=== PATIENT | female | born 1955 | race Caucasian/White ===

== ENCOUNTER → 2021-02-16 | Outpatient (CLI) | payer OTHER ==
[~2021-02-16] VITALS: Ht 157.5 cm; Wt 42.6 kg
[~2021-02-16] MED LIST: CITA10TA8 PO; LISI1TAB35 PO; NORMAL SALINE IV ONE; SINCALIDE IV ONE; SULF500T5 PO
--- NOTE | 2021-02-16 16:33 | RAD ---
HEPATOBILIARY SCAN WITH EJECTION FRACTION 02/16/2021 4:29 PM History: Reason: / Spl. Instructions: / History: Procedure: Serial static images are obtained of the liver and biliary system in the frontal projectio n following IV administration of 5.5 mCi of Technetium 99m Choletec. After filling of the gallbladd er, 0.87 mcg of sincalide were infused over 30 minutes and dynamic imaging continued over this period . The gallbladder ejection fraction was calculated. Findings: There is prompt hepatic clearance of tracer from the blood pool. There is homogeneous distr ibution throughout the liver. The gallbladder ejection fraction measures 93% (normal gallbladder EF is 35% or greater). IMPRESSION: 1. The cystic duct and common bile duct are patent. Negative for acute cholecystitis. 2. The gallbladder ejection fraction is normal Electronically signed by: Mark Rivas MD (02/16/2021 4:30 PM) [id number]
== END ==
LOC: NM 09:30
PROVIDERS: ATTEND Physician Assistant
DX: R10.11 Right upper quadrant pain (principal); R10.13 Epigastric pain; R52 Pain, unspecified
CPT/HCPCS: 78227; A9537; J2805